=== PATIENT | male | born 1995 | race Caucasian/White ===

== ENCOUNTER 2020-06-29 10:52 | Emergency (ER) | payer OTHER ==
[~2020-06-29] VITALS: Ht 185.4 cm; Wt 95.0 kg
[2020-06-29 11:06] VITALS: BP 141/80
[2020-06-29] MEDS ORDERED: BACI3.5O8 OS (11:54)
[2020-06-29] MEDS ORDERED: HYDR-2155 PO (11:54)
--- NOTE | 2020-06-29 11:54 | PHYS DOC ---
Past History Past Medical History: No Pertinent History Past Surgical History: No Surgical History Alcohol Use: Occasionally General Adult EDM: Chief Complaint: HAND PROBLEM HPI: HPI: Patient is a 24-year-old male brought in by mom for bilateral hand pain and swelling. Has blistering on his left hand. Patient was at a friend's house last night and walked home in the negative temperatures without labs taken by 1 to 2 hours. States he was unable to get a cab. Patient fell asleep when he got home and woke up with pain and blistering in his hands. Denies any other injuries or wounds. Otherwise has been well. Last tetanus greater than 5 years Review of Systems: Review of Systems: All other systems within normal limits except for as noted in the HPI Current Medications: Current Meds: Current Medications Medications (Trade) Dose Ordered Sig/Pushpa Start Time Stop Time Status Last Admin Dose Admin Acetaminophen/ Hydrocodone Bitart (Lortab 5/325) 1 tab 1X ONCE 06/29/20 12:00 06/29/20 12:01 UNV Diphtheria/ Pertussis/Tetanus Vacc (ADACEL TDap SYRINGE) 0.5 ml ONCE ONCE 06/29/20 12:00 06/29/20 12:01 UNV Allergies: Allergies: Allergies Coded Allergies Type Severity Reaction Last Updated Verified No Known Drug Allergies 06/29/20 No Physical Exam: PE: My physical exam constitutional: Well developed, well nourished, no acute distress, non-toxic appearance. [] HENT: Normocephalic, atraumatic, bilateral external ears normal, nose normal. [] Eyes: PERRLA, conjunctiva normal, no discharge. [] Neck: No rigidity, supple, no stridor. [] Cardiovascular: Regular rate and rhythm, brisk cap refill [] Lungs & Thorax: Non labored symmetric respirations, no tachypnea or respiratory distress [] Abdomen: Soft, nondistended. Skin: Warm, dry, erythema to bilateral hands, blistering on left. [] Back: Unremarkable Extremities: No deformities, range of motion grossly intact, no lower extremity edema [] Neurologic: Alert and oriented X 3, no focal deficits noted. [] Psychologic: Affect normal, judgement normal, mood normal. [] Current Patient Data: Vital Signs: Vital Signs Date Time Temp Pulse Resp B/P (MAP) Pulse Ox O2 Delivery O2 Flow Rate FiO2 06/29/20 11:06 97.2 76 18 141/80 (100) 99 Room Air EKG: EKG: [] Radiology/Procedures: Radiology/Procedures: [] Heart Score: Risk Factors: Risk Factors: DM, Current or recent (<one month) smoker, HTN, HLP, family history of CAD, obesity. Risk Scores: Score 0 - 3: 2.5% MACE over next 6 weeks - Discharge Home Score 4 - 6: 20.3% MACE over next 6 weeks - Admit for Clinical Observation Score 7 - 10: 72.7% MACE over next 6 weeks - Early Invasive Strategies Course & Med Decision Making: Course & Med Decision Making All blisters intact. Discussed wound care with patient and mother. Patient is not currently working and will not be exposed use hands anything. Brisk cap refill in all fingers. [] Dragon Disclaimer: Dragon Disclaimer: This electronic medical record was generated, in whole or in part, using a voice recognition dictation system. Departure Departure: Impression: Primary Impression: Frostbite of both hands Disposition: 01 DC HOME SELF CARE/HOMELESS Condition: STABLE Referrals: PCP,NO (PCP) Patient Instructions: Frostbite Additional Instructions: Keep blisters intact, temperature keep clean and bandage use antibiotic ointment. Scripts Bacitracin (BACITRACIN) 3.5 Gm Oint...g. 1 SILVA OS TID for antibiotic for 10 Days, #3.5 GM Prov: ALEXUS STACK MD 06/29/20 Hydrocodone Bit/Acetaminophen (HYDROCODONE-APAP 5-325 ) 1 Each Tablet 1 TAB PO PRN Q6HRS PRN for PAIN for 3 Days, #12 TAB 0 Refills Prov: ALEXUS STACK MD 06/29/20 ALEXUS STACK MD Jun 29, 2020 11:54
[2020-06-29] MEDS ORDERED: HYDROcodone/APAP 5/325MG 1 TAB TABLET PO ONE (12:00)
[2020-06-29] MEDS ORDERED: DIPH,PERTUSS(ACELL),TET VAC/PF 0.5 ML SYRINGE. VAX IM ONE (12:00)
== END 2020-06-29 12:11 | disposition home or self-care (01) ==
LOC: ER 10:52
DX: M79.642 Pain in left hand (principal); M79.641 Pain in right hand; R23.8 Other skin changes; X31.XXXA Exposure to excessive natural cold, initial encounter; Y93.89 Activity, other specified; Y92.89 Other specified places as the place of occurrence of the external cause; Y99.8 Other external cause status
CPT/HCPCS: 90471; 90715; 99283